=== PATIENT | female | born 1975 | race African-American/Black ===

== ENCOUNTER 2023-09-05 19:11 | Emergency (ER) | payer MEDICAID ==
[~2023-09-05] VITALS: Ht 154.9 cm; Wt 72.0 kg
[2023-09-05 19:17] VITALS: O2SAT 98
[2023-09-05] MEDS ORDERED: IBUPROFEN 600MG TABLET PO STA (21:32)
[2023-09-05 21:39] LABS: CLARITY URINE CLOUDY (CLEAR); COLOR URINE YELLOW (YELLOW); GLUCOSE URINE NEGATIVE (NEGATIVE); KETONES URINE NEGATIVE (NEGATIVE); LEUKOCYTE ESTERASE URINE NEGATIVE (NEGATIVE); NITRITE URINE NEGATIVE (NEGATIVE); OCCULT BLOOD URINE 1+ (NEGATIVE); PH URINE 5.5 (4.5-8.0); PROTEIN URINE NEGATIVE (NEGATIVE); SPECIFIC GRAVITY URINE 1.027 (1.005-1.030)
[2023-09-05] MEDS ORDERED: IBUP-2029 MT (21:47)
[2023-09-05] MEDS ORDERED: FLUC100T PO (21:50)
[2023-09-05 22:03] LABS: BACTERIA URINE NONE SEEN; SQUAMOUS EPITHELIAL CELL URINE 2+ /lpf (RARE/1+); WBC URINE 0-2 /hpf (0-2)
[2023-09-05 22:05] VITALS: BP 123/69; PULSE 59; RESP 16; TEMP 98.5
== END 2023-09-05 22:09 | disposition home or self-care (01) ==
LOC: ER 19:11
DX: M25.512 Pain in left shoulder (principal); M54.9 Dorsalgia, unspecified; V49.9XXA Car occupant (driver) (passenger) injured in unspecified traffic accident, initial encounter; Y93.89 Activity, other specified; Y92.89 Other specified places as the place of occurrence of the external cause; Y99.8 Other external cause status
CPT/HCPCS: 81003; 81025; 99283